=== PATIENT | male | born 1960 | race Caucasian/White ===

== ENCOUNTER 2016-05-25 12:19 | Emergency (ER) | payer OTHER ==
[~2016-05-25] VITALS: Ht 177.8 cm; Wt 89.9 kg
[2016-05-25] MEDS ORDERED: NORCO 5/3251 TABLET PO (18:46)
[2016-05-25] MEDS ORDERED: SKELAXIN800 MG PO (18:46)
[2016-05-25 19:03] VITALS: BP 153/86
== END 2016-05-25 19:07 | disposition home or self-care (01) ==
LOC: EME 12:19
DX: M54.5 Low back pain (principal)
CPT/HCPCS: 99281; 99284; J8540

== ENCOUNTER 2016-11-26 13:37 | Emergency (ER) | payer OTHER ==
[~2016-11-26] VITALS: Ht 175.3 cm; Wt 88.6 kg
[~2016-11-26 13:37] MED LIST: NORCO 5/3251 TABLET PO; SKELAXIN800 MG PO
[2016-11-26 14:30] LABS: HEMATOCRIT 38.3 % (38.0-50.0); MCH 29.8 PG (29.0-34.0); MCHC 34.7 G/DL (30.0-36.0); MCV 85.7 FL (86-99); MEAN PLAT.VOLUME 11.1 uM^3 (9.0-12.4); PLATELET COUNT 75 K/uL (156-360); RBC DIS.WIDTH-CV 12.3 % (11.8-14.6); RBC DIS.WIDTH-SD 38.1 % (39-53); RED BLOOD COUNT 4.47 M/uL (4.00-5.50); WHITE BLOOD COUNT 9.5 K/uL (4.1-10.2)
[2016-11-26 14:40] LABS: CHLORIDE 109 mEq/L (99-109); POTASSIUM 3.4 mEq/L (3.7-5.4); SODIUM 140 mEq/L (136-147)
[2016-11-26 14:42] LABS: GLUCOSE 132 mg/dL (70-99)
[2016-11-26 14:44] LABS: ANION GAP 10 MEQ/L (2-14); TOTAL BILIRUBIN 1.1 mg/dL (0.0-1.0)
[2016-11-26 14:46] LABS: ALKALINE PHOSPHATASE 96 IU/L (3-129); GFR ESTIMATE (CALCULATED) > 59 mL/min/
[2016-11-26 14:47] LABS: UREA NITROGEN (BUN) 25 mg/dL (9-23)
[2016-11-26 14:49] LABS: LIPASE 21 U/L (1.0-51.0)
[2016-11-26] MEDS ORDERED: ZOFRAN ODT4 MG PO (15:23)
[2016-11-26] MEDS ORDERED: PERCOCET 5/31 TABLET PO (15:23)
[2016-11-26] MEDS ORDERED: FLOMAX0.4 MG PO (15:24)
[2016-11-26 15:40] LABS: ADD MIUA? YES; BILIRUBIN NEGATIVE; BLOOD LARGE; COLOR YELLOW ((YELLOW)); GLUCOSE (STRIP) NEGATIVE; KETONES NEGATIVE; LEUKOCYTES NEGATIVE; NITRITE NEGATIVE; PROTEIN (STRIP) 30; SPECIFIC GRAVITY 1.019 (1.000-1.030); UROBILINOGEN 0.2 MG/DL (0.2-1.0)
[2016-11-26 16:03] VITALS: BP 137/84
[2016-11-26 17:30] LABS: BACTERIA 1+ /HPF; CALCIUM OXALATE CRYSTALS 1+ /HPF; EPITHELIAL CELLS NONE SEEN /HPF; MUCUS NONE SEEN /LPF; RED BLOOD CELLS TNTC /HPF (0-5); UCUL ADDED? YES; WHITE BLOOD CELLS NONE SEEN /HPF (0-5)
== END 2016-11-26 16:07 | disposition home or self-care (01) ==
LOC: EME 13:37
PROVIDERS: Nurse Practitioner Family
DX: N13.2 Hydronephrosis with renal and ureteral calculous obstruction (principal)
CPT/HCPCS: 74176; 80053; 81003; 83690; 85027; 87086; 99281; 99285; J1885; J2270; J2405; J7030